=== PATIENT | male | born 1970 | race Caucasian/White ===

== ENCOUNTER 2019-03-20 12:09 | Emergency (ER) | payer OTHER ==
[~2019-03-20] VITALS: Ht 175.3 cm; Wt 78.2 kg
[2019-03-20 12:19] VITALS: BP 150/103; Ht 175.3 cm; Wt 78.2 kg
[2019-03-20] MEDS ORDERED: [UNRECOGNIZED DRUG - REMARK] (12:21)
[2019-03-20] MEDS ORDERED: NEURONTIN 300300 MG PO (12:21)
== END 2019-03-20 15:47 | disposition left against medical advice (07) ==
LOC: D.ER 12:09
DX: R52 Pain, unspecified (principal)

== ENCOUNTER 2019-06-22 23:27 | Emergency (ER) | payer OTHER ==
[~2019-06-22] VITALS: Ht 175.3 cm; Wt 81.4 kg
[~2019-06-22 23:27] MED LIST: NEURONTIN 300300 MG PO; [UNRECOGNIZED DRUG - REMARK]
[2019-06-22 23:46] VITALS: Ht 175.3 cm; Wt 81.4 kg
[2019-06-23] MEDS ORDERED: KEFLEX500 MG PO (00:37)
[2019-06-23] MEDS ORDERED: HYDROCODON-ACE1 EAC2 PO (00:37)
[2019-06-23 01:17] VITALS: BP 125/84
== END 2019-06-23 01:17 | disposition home or self-care (01) ==
LOC: D.ER 23:27
DX: J32.9 Chronic sinusitis, unspecified (principal); F17.210 Nicotine dependence, cigarettes, uncomplicated